=== PATIENT | female | born 1985 | race Caucasian/White ===

== ENCOUNTER 2020-02-21 08:17 | Inpatient (IN) | payer MEDICAID, OTHER ==
[~2020-02-21] VITALS: Ht 167.6 cm; Wt 86.2 kg
[2020-02-21] MEDS ORDERED: DEXT 5%/LR + PITOCIN 20UNITS/L 1,000 ML IV SCH ×2 (09:29→23:02)
[2020-02-21] MEDS ORDERED: METHYLERGONOVINE MALEATE 0.2 MG/ML IM PRN (09:30)
[2020-02-21] MEDS ORDERED: LIDOCAINE HCL 1% 20ML VIAL (Pyxis) INJ INFIL SCH (09:30)
[2020-02-21] MEDS ORDERED: BUTORPHANOL TARTRATE 2 MG/ML VIAL IV PRN (09:30)
[2020-02-21] MEDS ORDERED: NALOXONE HCL 0.4 MG/ML 1ML VIAL IM PRN (09:30)
[2020-02-21] MEDS: LACTATED RINGERS 1,000 ML IV SCH ×2 (10:41→18:28)
[2020-02-21] MEDS ORDERED: ROPIVACAINE HCL/PF EPIDURAL 200 ML EPI SCH (10:45)
[2020-02-21] MEDS ORDERED: ONDANSETRON HCL 4MG/2ML INJ IV PRN ×2 (10:45→23:00)
[2020-02-21] MEDS ORDERED: DIPHENHYDRAMINE 50MG/ML VIAL IV PRN ×3 (10:45→23:00)
[2020-02-21] MEDS ORDERED: METOCLOPRAMIDE HCL 10MG/2ML VIAL IV PRN ×2 (10:45→23:00)
[2020-02-21] MEDS ORDERED: OXYTOCIN 20 UNITS in LACTATED RINGERS 1,000 ML IV SCH ×2 (11:00→13:00)
[2020-02-21 11:08] LABS: BASOPHILS % 0.3 % (0.0-2.0); EOSINOPHILS % 0.2 % (0.0-5.0); HEMATOCRIT. 36.3 % (36.0-48.0); HEMOGLOBIN. 11.8 g/dL (12.0-16.0); LYMPHOCYTES % 11.4 % (20.0-50.0); MEAN CORPUSCULAR HEMOGLOBIN 24.6 pg (28.0-32.0); MEAN CORPUSCULAR VOLUME 75.9 fL (81.0-99.0); MEAN PLATELET VOLUME 8.4 fl (7.4-10.4); MONOCYTES % 7.3 % (2.0-8.0); NEUTROPHILS % 80.8 % (40.0-76.0); PLATELET 366 x1000/uL (130-400); RED BLOOD CELL COUNT 4.78 mill/uL (4.2-5.4)
[2020-02-21 11:25] LABS: PARTIAL THROMBOPLASTIN TIME 30.1 sec (23.4-31.0); PROTHROMBIN TIME 10.3 sec (9.6-11.0)
[2020-02-21 11:28] LABS: CLARITY URINE CLOUDY (CLEAR); COLOR URINE YELLOW (YELLOW); KETONES URINE 1+ (NEGATIVE); LEUKOCYTE ESTERASE URINE 2+ (NEGATIVE); NITRITE URINE NEGATIVE (NEGATIVE); OCCULT BLOOD URINE NEGATIVE (NEGATIVE); PROTEIN URINE NEGATIVE (NEGATIVE); SPECIFIC GRAVITY URINE 1.015 (1.005-1.030)
[2020-02-21 11:46] LABS: HEPATITIS B SURFACE ANTIGEN NEGATIVE
[2020-02-21 11:57] LABS: *AMPHETAMINES SCREEN URINE NEGATIVE (NEGATIVE); *BENZODIAZEPINES SCREEN URINE NEGATIVE (NEGATIVE); *COCAINE SCREEN URINE NEGATIVE (NEGATIVE); METHADONE URINE SCREEN NEGATIVE (NEGATIVE); OPIATES URINE SCREEN NEGATIVE (NEGATIVE)
[2020-02-21 11:58] LABS: PHENCYCLIDINE URINE SCREEN NEGATIVE (NEGATIVE)
[2020-02-21 11:59] LABS: *BARBITURATES SCREEN URINE NEGATIVE (NEGATIVE)
[2020-02-21 12:05] LABS: CANNABINOID URINE SCREEN NEGATIVE (NEGATIVE)
[2020-02-21] MEDS ORDERED: BUPIVACAINE HCL/PF 0.25% (2.5MG/ML) 10ML ONE (12:52)
[2020-02-21] MEDS ORDERED: AMPICILLIN 2,000 MG in SODIUM CHLORIDE 0.9% 100 ML IV SCH (18:00)
[2020-02-21] MEDS ORDERED: ACETAMINOPHEN 325MG TABLET PO PRN (18:00)
[2020-02-21] MEDS ORDERED: EPHEDRINE SULFATE 50MG/ML VIAL ONE (21:46)
[2020-02-21] MEDS ORDERED: CEFAZOLIN SODIUM 1000MG/VIAL ONE (21:46)
[2020-02-21] MEDS ORDERED: OXYTOCIN 10 UNITS/ML 1ML ONE (21:46)
[2020-02-21] MEDS ORDERED: ONDANSETRON HCL 4MG/2ML INJ ONE (21:47)
[2020-02-21] MEDS ORDERED: LIDOCAINE HCL/PF 2% 20MG/ML 5 ML/VIAL ONE (21:47)
[2020-02-21] MEDS ORDERED: SUCCINYLCHOLINE CHLORIDE 200MG/10ML IV ONE (21:47)
[2020-02-21] MEDS ORDERED: MORPHINE SULFATE/PF 1MG/ML 10ML AMP ONE (21:54)
[2020-02-21] MEDS ORDERED: MORPHINE SULFATE 10 MG/ML CPJ IV PRN (23:00)
[2020-02-21] MEDS ORDERED: KETOROLAC 30MG/ML VIAL IV SCH (23:00)
[2020-02-21] MEDS ORDERED: NALOXONE HCL 0.4 MG/ML 1ML VIAL IV PRN (23:00)
[2020-02-21] MEDS ORDERED: METHYLERGONOVINE MALEATE 0.2 MG/ML ONE (23:00)
[2020-02-21] MEDS ORDERED: KETOROLAC 30MG/ML VIAL IM SCH (23:00)
[2020-02-21] MEDS ORDERED: FENTANYL CITRATE/PF 50MCG/ML 2ML VIAL IV PRN (23:00)
[2020-02-21] MEDS ORDERED: IBUPROFEN 800MG TABLET PO PRN (23:15)
[2020-02-21] MEDS ORDERED: RHO(D) IMMUNE GLOBULIN 300 MCG/SYR IM PRN (23:15)
[2020-02-21] MEDS ORDERED: BISACODYL 10MG SUPP PR PRN (23:15)
[2020-02-21] MEDS ORDERED: IBUPROFEN 400MG TABLET PO PRN (23:15)
[2020-02-21] MEDS: KETOROLAC 30MG/ML VIAL IV PRN (23:47)
[2020-02-21] MEDS: AMPICILLIN 1,000 MG in SODIUM CHLORIDE 0.9% 50 ML IV SCH (23:55)
[2020-02-22] VITALS (8 sets, daily range): BP systolic 101–132; BP diastolic 59–92
[2020-02-22] MEDS: AMPICILLIN 1,000 MG in SODIUM CHLORIDE 0.9% 50 ML IV SCH ×4 (05:28→23:27)
[2020-02-22 06:47] LABS: HEMATOCRIT. 30.9 % (36.0-48.0); MEAN CORPUSCULAR HEMOGLOBIN 24.6 pg (28.0-32.0); MEAN CORPUSCULAR VOLUME 76.3 fL (81.0-99.0); PLATELET 285 x1000/uL (130-400); RED BLOOD CELL COUNT 4.05 mill/uL (4.2-5.4); RED CELL DISTRIBUTION WIDTH 19.3 % (11.6-14.6)
[2020-02-22 15:41] LABS: PLATELET ESTIMATE NORMAL
[2020-02-22] MEDS: KETOROLAC 30MG/ML VIAL IV PRN (21:18)
[2020-02-23 03:41] VITALS: BP 105/60
[2020-02-23] MEDS: AMPICILLIN 1,000 MG in SODIUM CHLORIDE 0.9% 50 ML IV SCH ×2 (05:10→11:43)
[2020-02-23] MEDS: KETOROLAC 30MG/ML VIAL IV PRN (05:18)
[2020-02-23 08:00] VITALS: BP 112/51
[2020-02-23 08:54] LABS: BASOPHILS % 0.3 % (0.0-2.0); EOSINOPHILS % 0.9 % (0.0-5.0); HEMATOCRIT. 27.3 % (36.0-48.0); HEMOGLOBIN. 8.8 g/dL (12.0-16.0); MEAN CORPUSCULAR HEMOGLOBIN 24.6 pg (28.0-32.0); MEAN CORPUSCULAR VOLUME 76.4 fL (81.0-99.0); MEAN PLATELET VOLUME 7.9 fl (7.4-10.4); MONOCYTES % 3.8 % (2.0-8.0); PLATELET 315 x1000/uL (130-400); RED BLOOD CELL COUNT 3.57 mill/uL (4.2-5.4); RED CELL DISTRIBUTION WIDTH 18.9 % (11.6-14.6)
[2020-02-23] MEDS: CEFAZOLIN 1000MG PREMIX 50 ML IV SCH ×2 (17:15→22:51)
[2020-02-23 20:00] VITALS: BP 121/68
[2020-02-23 20:09] LABS: BASOPHILS % 0.5 % (0.0-2.0); EOSINOPHILS % 1.1 % (0.0-5.0); HEMATOCRIT. 25.7 % (36.0-48.0); HEMOGLOBIN. 8.5 g/dL (12.0-16.0); LYMPHOCYTES % 10.6 % (20.0-50.0); MEAN CORPUSCULAR HEMOGLOBIN 25.4 pg (28.0-32.0); MEAN CORPUSCULAR VOLUME 76.8 fL (81.0-99.0); MEAN PLATELET VOLUME 8.1 fl (7.4-10.4); MONOCYTES % 3.1 % (2.0-8.0); NEUTROPHILS % 84.7 % (40.0-76.0); PLATELET 318 x1000/uL (130-400); RED BLOOD CELL COUNT 3.34 mill/uL (4.2-5.4); RED CELL DISTRIBUTION WIDTH 19.6 % (11.6-14.6)
[2020-02-24] VITALS: BP 122/66
[2020-02-24 04:00] VITALS: BP 123/73
[2020-02-24] MEDS: CEFAZOLIN 1000MG PREMIX 50 ML IV SCH ×2 (04:59→10:14)
[2020-02-24 06:17] LABS: BASOPHILS % 0.4 % (0.0-2.0); EOSINOPHILS % 1.5 % (0.0-5.0); HEMATOCRIT. 25.2 % (36.0-48.0); HEMOGLOBIN. 8.2 g/dL (12.0-16.0); MEAN CORPUSCULAR HEMOGLOBIN 25.2 pg (28.0-32.0); MEAN PLATELET VOLUME 7.8 fl (7.4-10.4); MONOCYTES % 3.8 % (2.0-8.0); NEUTROPHILS % 81.3 % (40.0-76.0); PLATELET 326 x1000/uL (130-400); RED BLOOD CELL COUNT 3.27 mill/uL (4.2-5.4); RED CELL DISTRIBUTION WIDTH 19.7 % (11.6-14.6)
[2020-02-24 08:00] VITALS: BP 116/70
== END 2020-02-24 12:00 | disposition home or self-care (01) | DRG 540 ==
LOC: 8 EST LDRP 08:17 → OBSVTOIN 08:17 → 8 EST LDRP 14:25 → 8EST 02-22 00:34
PROVIDERS: ADMIT Obstetrics & Gynecology; ATTEND Obstetrics & Gynecology
PROC: 10D00Z1 Extraction of Products of Conception, Low, Open Approach (ICD-10-PCS; principal; 2020-02-21)
DX: O24.429 Gestational diabetes mellitus in childbirth, unspecified control (principal); O62.2 Other uterine inertia; O77.0 Labor and delivery complicated by meconium in amniotic fluid; O99.12 Other diseases of the blood and blood-forming organs and certain disorders involving the immune mechanism complicating childbirth; D72.829 Elevated white blood cell count, unspecified; O32.1XX0 Maternal care for breech presentation, not applicable or unspecified; Z37.0 Single live birth; Z83.3 Family history of diabetes mellitus; Z82.49 Family history of ischemic heart disease and other diseases of the circulatory system; Z3A.39 39 weeks gestation of pregnancy
CPT/HCPCS: 36415; 80305; 81003; 82947; 82962; 85025; 86592; 86703; 86762; 86850; 86900; 87070; 87340; 88307; J0290; J0330; J0690; J1885; J2210; J2274; J2405; J2795; J3490; J7050; J7120